=== PATIENT | female | born 1935 | race Caucasian/White ===

== ENCOUNTER 2017-06-11 14:30 | Inpatient (IN) | payer MEDICARE ==
[~2017-06-11] VITALS: Ht 165.1 cm; Wt 96.7 kg
[~2017-06-11 14:30] MED LIST: BUPR-47 PO; HYDR12.54 PO; LISI-617 PO; METF500T6 PO; OMEP20TA25 PO; POTA-9 PO; SIMV40TA5 PO
[2017-06-11 14:50] VITALS: BP 124/53
[2017-06-11] MEDS ORDERED: VERA120C2 PO (14:52)
[2017-06-11 14:58] LABS: APPEARANCE,URINE Clear (CLEAR); BILIRUBIN,URINE Negative (NEGATIVE); COLOR,URINE Yellow (YELLOW); GLUCOSE, URINE (UA) Negative (NEGATIVE); KETONES,URINE Negative (NEGATIVE); LEUKOCYTE ESTERASE ,URINE Small (NEGATIVE); NITRATE,URINE Negative (NEGATIVE); OCCULT BLOOD,URINE Trace (NEGATIVE); PROTEIN,URINE Negative (NEGATIVE); UROBILINOGEN,URINE 0.2 mg/dL (0.2-1.0)
[2017-06-11 15:26] LABS: BACTERIA,URINE Few /HPF (None Seen); RBC,URINE None Seen /HPF (0-1); WBC,URINE 0-1 /HPF (0-1)
[2017-06-14] VITALS (25 sets, daily range): BP systolic 106–151; BP diastolic 50–95
[2017-06-14] MEDS: CEFAZOLIN SODIUM 1 GM VIAL IVP SCH ×3 (06:00→18:27)
[2017-06-14] MEDS ORDERED: TRANEXAMIC ACID 1000MG/10ML IV ONE (06:52)
[2017-06-14] MEDS ORDERED: CEFAZOLIN SODIUM 1 GM VIAL ONE (06:52)
[2017-06-14] MEDS ORDERED: BUPIVACAINE/EPI/PF 0.25% 30ML VIAL IJ ONE (06:52)
[2017-06-14] MEDS ORDERED: SODIUM CHLORIDE 0.9% 1000ML 1,000 ML IV ONE (07:03)
[2017-06-14] MEDS ORDERED: DEXAMETHASONE SOD PHOSPHATE 10MG/ML 1ML VIAL ONE (08:00)
[2017-06-14] MEDS ORDERED: PROPOFOL 10 MG/ML 20ML VIAL IV ONE (08:00)
[2017-06-14] MEDS ORDERED: LIDOCAINE PF 2% 5ML ABBOJECT ONE (08:00)
[2017-06-14] MEDS ORDERED: ONDANSETRON HCL 4 MG/2 ML VIAL ONE (08:00)
[2017-06-14] MEDS ORDERED: GLYCOPYRROLATE 0.2 MG/ML 5 ML VIAL ONE (08:00)
[2017-06-14] MEDS ORDERED: FENTANYL CITRATE PF 50 MCG/1 ML 2ML VIAL ONE ×2 (08:01→09:36)
[2017-06-14] MEDS ORDERED: MIDAZOLAM HCL 1 MG/ML 2ML VIAL ONE (08:01)
[2017-06-14] MEDS ORDERED: CELECOXIB 200 MG CAP ONE (08:37)
[2017-06-14] MEDS ORDERED: ACETAMINOPHEN EXTRA STRENGTH 500 MG TABLET ONE (08:37)
[2017-06-14] MEDS ORDERED: KETOROLAC TROMETHAMINE 15MG/ML ONE (08:37)
[2017-06-14] MEDS ORDERED: OXYCODONE HCL 10 MG TAB.SR.12H PO ONE (08:38)
[2017-06-14] MEDS ORDERED: ROPIVACAINE 0.5% 5MG/ML 30ML IJ ONE (08:49)
[2017-06-14] MEDS ORDERED: ESMOLOL HCL 10 MG/ML 10 ML VIAL ONE (10:02)
[2017-06-14] MEDS ORDERED: TEMAZEPAM 15 MG CAPSULE PO PRN (10:45)
[2017-06-14] MEDS ORDERED: FERROUS FUMARATE 324 MG TABLET PO PRN (10:45)
[2017-06-14] MEDS ORDERED: TRAMADOL HCL 50 MG TABLET PO PRN (10:45)
[2017-06-14] MEDS ORDERED: POTASSIUM CHLORIDE 20 MEQ ERTAB PO PRN (10:45)
[2017-06-14] MEDS ORDERED: POTASSIUM CHLORIDE 20MEQ/100ML 100 ML IV PRN (10:45)
[2017-06-14] MEDS ORDERED: DiphenhydrAMINE HCL 50 MG/ML VIAL IVP PRN (10:45)
[2017-06-14] MEDS ORDERED: POTASSIUM CHLORIDE 10% ELIXIR 20 MEQ/15 ML UDCUP PO PRN (10:45)
[2017-06-14] MEDS: ACETAMINOPHEN 325 MG TAB PO SCH ×3 (10:45→23:35)
[2017-06-14] MEDS ORDERED: KETOROLAC TROMETHAMINE 15MG/ML IV PRN (10:45)
[2017-06-14] MEDS ORDERED: DIPHENHYDRAMINE HCL 25 MG CAPSULE PO PRN (10:45)
[2017-06-14] MEDS ORDERED: PROMETHAZINE HCL 25 MG/ML 1ML AMPULE IM PRN (10:45)
[2017-06-14] MEDS ORDERED: LIDOCAINE HCL-MPF 1% 2ML VIAL IVP PRN (10:45)
[2017-06-14] MEDS: INSULIN HUMULIN R 100 UNIT/ML 3ML SQ SCH ×3 (11:30→21:00)
[2017-06-14] MEDS: PSYLLIUM SEED 1 EACH PACKET PO SCH (12:32)
[2017-06-14] MEDS: SODIUM CHLORIDE 0.9% 1000ML 1,000 ML IV SCH ×2 (12:32→23:38)
[2017-06-14] MEDS ORDERED: CEFAZOLIN 3GM /D5W 100ML 100 ML IV SCH (15:45)
[2017-06-14] MEDS: METFORMIN HCL 500 MG TABLET PO SCH (18:26)
[2017-06-14] MEDS: BUPROPION HCL 150 MG TABLET.SA PO SCH (21:16)
[2017-06-14] MEDS: ASPIRIN 325 MG TABLET PO SCH (21:16)
[2017-06-14] MEDS: FAMOTIDINE 20MG TAB 20 MG TAB PO SCH (21:17)
[2017-06-14] MEDS: LISINOPRIL 5 MG TABLET PO SCH (21:17)
[2017-06-14] MEDS: CELECOXIB 200 MG CAP PO SCH (21:18)
[2017-06-14] MEDS: ATORVASTATIN CALCIUM 20 MG TABLET PO SCH (21:18)
[2017-06-14] MEDS: POTASSIUM CHLORIDE 10 MEQ/TAB.SA PO SCH (21:24)
[2017-06-15] MEDS: CEFAZOLIN SODIUM 1 GM VIAL IVP SCH (01:24)
[2017-06-15] MEDS ORDERED: HYDROCODONE/ACETAMINOPHEN 5/325 MG TAB PO PRN (02:45)
[2017-06-15 05:04] VITALS: BP 117/57
[2017-06-15] MEDS: ACETAMINOPHEN 325 MG TAB PO SCH ×4 (05:13→21:55)
[2017-06-15 05:27] LABS: HEMATOCRIT 31.7 % (36-48); MEAN CORPUSCULAR HEMOGLOBIN 34.5 pg (27.0-33.0); MEAN CORPUSCULAR HGB CONC 35.3 g/dL (32.0-36.0); MEAN CORPUSCULAR VOLUME 97.7 fL (79-99); PLATELET COUNT (AUTO) 173 K/uL (130-400); RED BLOOD CELL COUNT(AUTO) 3.25 MIL/uL (4.00-5.50); RED CELL DISTRIBUTION WIDTH 13.8 % (11.0-15.5); WHITE BLOOD COUNT (AUTO) 8.2 K/uL (4.8-10.8)
[2017-06-15 05:42] LABS: CREATININE 0.8 mg/dL (0.5-1.5); POTASSIUM 3.7 mmol/L (3.5-5.1)
[2017-06-15] MEDS: INSULIN HUMULIN R 100 UNIT/ML 3ML SQ SCH ×4 (05:55→20:44)
[2017-06-15] MEDS: SODIUM CHLORIDE 0.9% 1000ML 1,000 ML IV SCH (06:43)
[2017-06-15 08:02] VITALS: BP 105/60
[2017-06-15] MEDS: FAMOTIDINE 20MG TAB 20 MG TAB PO SCH ×2 (08:38→20:17)
[2017-06-15] MEDS: ASPIRIN 325 MG TABLET PO SCH ×2 (08:38→20:17)
[2017-06-15] MEDS: POLYETHYLENE GLYCOL 3350 17 GM POWD.PACK PO SCH (08:38)
[2017-06-15] MEDS: METFORMIN HCL 500 MG TABLET PO SCH ×2 (08:38→16:32)
[2017-06-15] MEDS: BUPROPION HCL 150 MG TABLET.SA PO SCH ×2 (08:39→20:17)
[2017-06-15] MEDS: CELECOXIB 200 MG CAP PO SCH ×2 (08:39→20:15)
[2017-06-15] MEDS: CALCIUM CARBONATE 500 MG TABLET PO PRN ×2 (08:39→20:17)
[2017-06-15] MEDS: VERAPAMIL HCL 240 MG SRTAB PO SCH (08:39)
[2017-06-15] MEDS ORDERED: NON-FORMULARY MEDICATION 1 EACH (Omeprazole 20 MG) PO SCH (09:00)
[2017-06-15] MEDS ORDERED: HYDROCHLOROTHIAZIDE 25 MG TABLET PO PRN (09:00)
[2017-06-15 11:38] VITALS: BP 112/64
[2017-06-15] MEDS: PSYLLIUM SEED 1 EACH PACKET PO SCH (12:46)
[2017-06-15 16:28] VITALS: BP 114/52
[2017-06-15] MEDS: LISINOPRIL 5 MG TABLET PO SCH (20:13)
[2017-06-15] MEDS: ATORVASTATIN CALCIUM 20 MG TABLET PO SCH (20:17)
[2017-06-15] MEDS: POTASSIUM CHLORIDE 10 MEQ/TAB.SA PO SCH (20:17)
[2017-06-15 21:10] VITALS: BP 117/58
[2017-06-16 00:16] VITALS: BP 137/58
[2017-06-16] MEDS: ACETAMINOPHEN 325 MG TAB PO SCH ×3 (04:35→16:45)
[2017-06-16] MEDS: INSULIN HUMULIN R 100 UNIT/ML 3ML SQ SCH ×3 (05:52→16:30)
[2017-06-16 06:03] LABS: HEMATOCRIT 31.6 % (36-48); MEAN CORPUSCULAR HEMOGLOBIN 35.1 pg (27.0-33.0); MEAN CORPUSCULAR HGB CONC 35.5 g/dL (32.0-36.0); MEAN CORPUSCULAR VOLUME 98.9 fL (79-99); NUCLEATED RED BLOOD CELLS 0.1 % (0.0-0.19); PLATELET COUNT (AUTO) 155 K/uL (130-400); RED BLOOD CELL COUNT(AUTO) 3.19 MIL/uL (4.00-5.50); WHITE BLOOD COUNT (AUTO) 6.9 K/uL (4.8-10.8)
[2017-06-16 06:13] LABS: CREATININE 0.9 mg/dL (0.5-1.5); POTASSIUM 3.8 mmol/L (3.5-5.1)
[2017-06-16 08:04] VITALS: BP 127/59
[2017-06-16] MEDS: ASPIRIN 325 MG TABLET PO SCH (10:05)
[2017-06-16] MEDS: VERAPAMIL HCL 240 MG SRTAB PO SCH (10:05)
[2017-06-16] MEDS: FAMOTIDINE 20MG TAB 20 MG TAB PO SCH (10:05)
[2017-06-16] MEDS: POLYETHYLENE GLYCOL 3350 17 GM POWD.PACK PO SCH (10:05)
[2017-06-16] MEDS: CELECOXIB 200 MG CAP PO SCH (10:05)
[2017-06-16] MEDS: HYDROCODONE/ACETAMINOPHEN 5/325 MG TAB PO PRN ×2 (10:06→10:50)
[2017-06-16] MEDS: BUPROPION HCL 150 MG TABLET.SA PO SCH (10:06)
[2017-06-16] MEDS: METFORMIN HCL 500 MG TABLET PO SCH ×2 (10:09→16:45)
[2017-06-16] MEDS ORDERED: BISACODYL 5 MG TABLET.DR PO PRN (10:45)
[2017-06-16 11:48] VITALS: BP 151/72
[2017-06-16] MEDS ORDERED: ASPI-1012 PO (11:55)
[2017-06-16] MEDS ORDERED: HYDR-2132 PO (11:55)
[2017-06-16] MEDS: PSYLLIUM SEED 1 EACH PACKET PO SCH (12:23)
[2017-06-16 16:35] VITALS: BP 143/64
[2017-06-17] MEDS ORDERED: BISACODYL 10 MG SUPP.RECT RC PRN (10:45)
== END 2017-06-16 19:15 | disposition home health service (06) | DRG 470 ==
LOC: DAHIP 06-14 06:13 → 4AH 06-14 11:54
PROVIDERS: ADMIT Orthopaedic Surgery; ATTEND Orthopaedic Surgery
PROC: 0SRD0J9 Replacement of Left Knee Joint with Synthetic Substitute, Cemented, Open Approach (ICD-10-PCS; principal; 2017-06-14 08:46)
DX: M17.12 Unilateral primary osteoarthritis, left knee (principal)
CPT/HCPCS: 36415; 80048; 81001; 82948; 85027; 88304; 88311; A4218; C1713; J0690; J1100; J1885; J2001; J2250; J2405; J2704; J2795; J3010; J3490; J7030